=== PATIENT | male | born 1955 | race Caucasian/White ===

== ENCOUNTER 2021-09-17 14:40 | Emergency (ER) | payer OTHER ==
[~2021-09-17] VITALS: Ht 177.8 cm; Wt 95.3 kg
[~2021-09-17 14:40] MED LIST: IBUPROFEN 600600 M1 PO; NORCO 5-325 TA1 EACH PO
[2021-09-17 15:52] LABS: ABSOLUTE NEUTROPHILS 3.1 thou/uL (1.4-8.2); BASOPHILS 0.7 % (0.0-2.0); HEMATOCRIT 44.1 % (42.0-52.0); HEMOGLOBIN 14.9 gm/dL (14.0-18.0); LYMPHOCYTES 10.9 % (24.0-44.0); MCH 29.7 pg (26.0-34.0); MCHC 33.8 g/dL (28.0-37.0); MCV 87.7 fL (80.0-100.0); PLATELET COUNT 138 thou/uL (150-400); POLYS 80.4 % (36.0-66.0); RBC 5.03 mil/uL (4.50-6.00); RDW 13.3 % (10.5-14.5); WBC 3.8 thou/uL (4.0-11.0)
[2021-09-17 15:57] LABS: CALCIUM 8.1 mg/dL (8.5-10.1); POTASSIUM 4.1 mmol/L (3.5-5.1)
[2021-09-17 15:58] LABS: MAGNESIUM 2.1 mg/dL (1.8-2.4)
[2021-09-17 16:57] VITALS: BP 134/76
== END 2021-09-17 17:17 | disposition home or self-care (01) ==
LOC: ER 14:40
PROVIDERS: Student in an Organized Health Care Education/Training Program
DX: U07.1 COVID-19 (principal); R97.1 Elevated cancer antigen 125 [CA 125]; Z90.49 Acquired absence of other specified parts of digestive tract